=== PATIENT | female | born 1985 | race Hispanic/Latino ===

== ENCOUNTER 2018-11-30 13:15 | Emergency (ER) | payer BC, OTHER ==
[~2018-11-30 13:15] MED LIST: ACEB200 PO; METHY500 GT; PREN1TAB80 PO
[2018-11-30] MEDS ORDERED: METRONIDAZOLE 500 MG TABLET ONE (14:38)
== END 2018-11-30 15:10 | disposition home or self-care (01) ==
LOC: EDH 13:15
DX: N76.0 Acute vaginitis (principal); I10 Essential (primary) hypertension
CPT/HCPCS: 81025; 87210

== ENCOUNTER 2019-03-02 10:31 | Emergency (ER) | payer BC, OTHER ==
[2019-03-02] MEDS ORDERED: DiphenhydrAMINE HCL 25 MG/10 ML ELIXIR UDCUP ONE (11:05)
[2019-03-02] MEDS ORDERED: LIDOCAINE HCL 2% VISCOUS 15 ML UDCUP ONE (11:05)
[2019-03-02] MEDS ORDERED: MAG HYDROX/AL HYDROX/SIMETH ES 30 ML SUSP UDCUP ONE (11:05)
== END 2019-03-02 11:30 | disposition home or self-care (01) ==
LOC: EDH 10:31
DX: J35.01 Chronic tonsillitis (principal); I10 Essential (primary) hypertension

== ENCOUNTER → 2022-07-29 | Outpatient (CLI) | payer BC ==
[~2022-07-29] MED LIST changes: -ACEB200 PO; +ACET-2079 PO; +LABE200T7 PO; -METHY500 GT; -PREN1TAB80 PO; +TAMS-1 PO
== END | disposition home or self-care (01) ==
LOC: RAH 09:43
PROVIDERS: ATTEND Urology
DX: N20.0 Calculus of kidney (principal)
CPT/HCPCS: 74018; 76100

== ENCOUNTER → 2022-10-05 | Outpatient (CLI) | payer BC | END | disposition home or self-care (01) | LOC: RAH 13:48 | PROVIDERS: ATTEND Urology | DX: N20.0 Calculus of kidney (principal) | CPT/HCPCS: 74176 ==

== ENCOUNTER → 2022-11-29 | Outpatient (CLI) | payer BC | END | disposition home or self-care (01) | LOC: RAH 13:59 | PROVIDERS: ATTEND Urology | DX: N20.0 Calculus of kidney (principal); N26.1 Atrophy of kidney (terminal); N32.89 Other specified disorders of bladder; K76.0 Fatty (change of) liver, not elsewhere classified; K44.9 Diaphragmatic hernia without obstruction or gangrene; K82.8 Other specified diseases of gallbladder; M47.815 Spondylosis without myelopathy or radiculopathy, thoracolumbar region | CPT/HCPCS: 74018; 74176; 76100 ==

== ENCOUNTER 2022-12-07 05:37 | Day surgery (SDC) | payer BC ==
[2022-12-06 09:49] VITALS: BP 182/94
[2022-12-06 09:59] LABS: HEMATOCRIT 35.5 % (36-48); MEAN CORPUSCULAR HEMOGLOBIN 25.2 pg (27.0-33.0); MEAN CORPUSCULAR HGB CONC 30.7 g/dL (32.0-36.0); PLATELET COUNT (AUTO) 345 K/uL (130-400); RED BLOOD CELL COUNT(AUTO) 4.33 MIL/uL (4.00-5.50); RED CELL DISTRIBUTION WIDTH 15.6 % (11.0-15.5); WHITE BLOOD COUNT (AUTO) 8.4 K/uL (4.8-10.8)
[2022-12-06 10:04] LABS: APPEARANCE,URINE CLEAR (CLEAR); BILIRUBIN,URINE NEGATIVE (NEGATIVE); COLOR,URINE LIGHT-YELLOW (YELLOW); GLUCOSE, URINE (UA) NEGATIVE (NEGATIVE); KETONES,URINE NEGATIVE (NEGATIVE); LEUKOCYTE ESTERASE ,URINE NEGATIVE Leu/uL (NEGATIVE); NITRATE,URINE NEGATIVE (NEGATIVE); PH,URINE 6.5 (5.0-8.0); PROTEIN,URINE 30 mg/dL (NEGATIVE); UROBILINOGEN,URINE 0.2 mg/dL (0.2-1.0)
[2022-12-06 10:12] LABS: INR 0.93 (0.85-1.15); PROTHROMBIN TIME 10.2 SEC (9.6-11.6)
[2022-12-06 10:13] LABS: PARTIAL THROMBOPLASTIN TIME 36.9 SEC (26.3-35.5)
[2022-12-06 10:17] LABS: ALBUMIN 3.8 g/dL (3.5-5.0); CREATININE 0.7 mg/dL (0.5-1.5); POTASSIUM 3.7 mmol/L (3.5-5.1); TOTAL PROTEIN, SERUM 7.4 g/dL (6.0-8.3)
[2022-12-06 10:27] LABS: MUCUS,URINE RARE LPF (None Seen); SQUAMOUS EPITHELIAL CELL,UR FEW /HPF (0-2); WBC,URINE 0-1 /HPF (0-1)
[~2022-12-07] VITALS: Ht 165.1 cm; Wt 105.3 kg
[2022-12-07] VITALS (15 sets, daily range): BP systolic 133–186; BP diastolic 80–111
[~2022-12-07 05:37] MED LIST changes: -ACET-2079 PO; +AMLO-257 PO; +HYDR25TA PO; -LABE200T7 PO; +LABE300T4 PO; +LACTATED RINGERS 1000ML 1,000 ML IV SCH; -TAMS-1 PO
[2022-12-07] MEDS ORDERED: INVANZ 1GM+NS 50ML IVPB 50 ML IV SCH (06:00)
[2022-12-07] MEDS ORDERED: FAMOTIDINE 20MG VIAL IV ONE (06:24)
[2022-12-07] MEDS ORDERED: LABETALOL 20MG SYG IV ONE (06:25)
[2022-12-07] MEDS ORDERED: GLYCOPYRROLATE 1 MG/5 ML SYRINGE ONE (06:28)
[2022-12-07] MEDS ORDERED: ROCURONIUM 10MG/1ML SYR 10 MG/ML ML ONE (06:28)
[2022-12-07] MEDS ORDERED: MIDAZOLAM HCL 1 MG/ML 2ML VIAL ONE (06:28)
[2022-12-07] MEDS ORDERED: LIDOCAINE PF 100MG/5ML (2%) SYRINGE 5ML ONE (06:28)
[2022-12-07] MEDS ORDERED: PROPOFOL 10 MG/ML 20ML VIAL IV ONE (06:28)
[2022-12-07] MEDS ORDERED: FENTANYL CITRATE PF 50 MCG/1 ML 2ML VIAL ONE (06:29)
[2022-12-07] MEDS ORDERED: ONDANSETRON 4MG INJ ONE (07:01)
[2022-12-07] MEDS ORDERED: DiphenhydrAMINE HCL 50 MG/ML VIAL ONE (07:02)
[2022-12-07] MEDS ORDERED: NEOSTIGMINE 5MG/5ML SYR IV ONE (07:40)
== END 2022-12-07 09:50 | disposition home or self-care (01) ==
LOC: DAH 05:37
PROVIDERS: ATTEND Urology
DX: N20.0 Calculus of kidney (principal); Z20.822 Contact with and (suspected) exposure to COVID-19; I10 Essential (primary) hypertension; E66.9 Obesity, unspecified; Z98.890 Other specified postprocedural states; Z79.01 Long term (current) use of anticoagulants; Z79.899 Other long term (current) drug therapy
CPT/HCPCS: 80053; 84703; 85027; 85610; 85730; 87088; 87426; 81001; 36415; 74018; 71046; 93005; 50590; A6260; A4663; J7120 ×2; J1200; J3490 ×2; J3010; J2710; J2001; J2250; J2704; J2405; J1335; A4215; A4223; A4222; A4221

== ENCOUNTER → 2022-12-29 | Outpatient (CLI) | payer BC ==
[~2022-12-29] MED LIST changes: -LACTATED RINGERS 1000ML 1,000 ML IV SCH
== END | disposition home or self-care (01) ==
LOC: RAH 13:05
PROVIDERS: ATTEND Urology
DX: N20.0 Calculus of kidney (principal); M47.815 Spondylosis without myelopathy or radiculopathy, thoracolumbar region
CPT/HCPCS: 74018; 76100

== ENCOUNTER → 2023-08-11 | Outpatient (CLI) | payer BC | END | disposition home or self-care (01) | LOC: RAH 14:44 | PROVIDERS: ATTEND Urology | DX: N20.0 Calculus of kidney (principal); Z87.442 Personal history of urinary calculi | CPT/HCPCS: 74176 ==

== ENCOUNTER → 2025-04-26 | Outpatient (CLI) | payer BC ==
--- NOTE | 2025-04-29 08:01 | HMCIMG ---
EXAM: CT Abdomen and Pelvis without IV contrast CLINICAL HISTORY: Calculus of kidney TECHNIQUE: Axial computed tomography images of the abdomen and pelvis without intravenous contrast. CONTRAST: No IV contrast. COMPARISON: August 11, 2023. FINDINGS: LUNG BASES: The lung bases appear clear except for a 5 mm incompletely imaged nodule in the right middle lobe (axial image 1/193). No pleural effusions are seen. LIVER: Again noted is prominent right lobe of liver. GALLBLADDER AND BILE DUCTS: The gallbladder appears within normal limits. No radiopaque gallstones are seen. No biliary ductal dilatation is evident. PANCREAS: Unremarkable. SPLEEN: Unremarkable. ADRENAL GLANDS: Unremarkable. KIDNEYS, URETERS, AND BLADDER: There are right renal cortical lobulations, as seen previously, which may be developmental. The kidneys otherwise appear within normal limits. There is no hydronephrosis or hydroureter. No urinary calculi. STOMACH AND BOWEL: Unremarkable appearance of the stomach and bowel. The distal colon is underdistended, as seen previously. No evidence of bowel obstruction. No evidence suggesting enteritis. There are a few distal colonic non-inflamed diverticuli, as seen previously. APPENDIX: Unremarkable. PERITONEUM: No free fluid. No free air. LYMPH NODES: No lymphadenopathy is evident. REPRODUCTIVE: Unremarkable except for dystrophic vascular calcifications of the uterus. VASCULATURE: No evidence of abdominal aortic aneurysm. BONES: No aggressive appearing osseous lesion. No acute osseous pathology evident. SOFT TISSUE: Unremarkable. IMPRESSION: No acute intra-abdominal or pelvic abnormality. Small 5 mm incompletely imaged nodule in the right middle lobe. A follow-up chest CT is recommended. /[place]
== END | disposition home or self-care (01) ==
LOC: RAH 12:39
PROVIDERS: ATTEND Urology
DX: N20.0 Calculus of kidney (principal); K57.30 Diverticulosis of large intestine without perforation or abscess without bleeding; N85.8 Other specified noninflammatory disorders of uterus; R91.1 Solitary pulmonary nodule
CPT/HCPCS: 74176